=== PATIENT | male | born 1990 | race Caucasian/White ===

== ENCOUNTER 2019-02-28 11:37 | Emergency (ER) | payer OTHER, SELFPAY ==
[2019-02-28 11:38] VITALS: BP 98/62; PULSE 71; RESP 16; TEMP 36.9; O2SAT 99; BMI 18.0
[2019-02-28 12:45] LABS: Absolute Neutrophil Count 4.3 X10^3/uL (2.0-7.7); Basophil# 0.04 X10^3/uL; Basophil% 0.6 % (0-1); Eosinophil# 0.15 X10^3/uL; Eosinophils% 2.1 % (0-5); Hematocrit 46.8 % (40-54); Hemoglobin 15.7 g/dL (13.0-16.5); Lymphocyte % 22.5 % (19-41); Mean Corp Hgb Conc 33.5 g/dL (32-36); Mean Corpuscular Hgb 29.4 pg (27.0-32.0); Mean Corpuscular Volume 87.6 fL (80-94); Mean Platelet Vol. 9.2 fl (6.2-12.0); Monocyte# 0.95 X10^3/uL; Monocyte% 13.4 % (0-10); NRBC Flagged by Analyzer 0 % (0-5); Neutrophil # 4.34 X10^3/uL (2.7-7.7); Neutrophil % 61.1 % (47-70); Platelet Count 194 K/mm3 (150-450); RBC Distribution Width CV 11.6 % (11.6-14.6); RBC Distribution Width SD 37.4 fl (35.1-43.9); Red Blood Count 5.34 M/mm3 (4.6-6.2); White Blood Count 7.1 K/mm3 (4.4-11.0)
[2019-02-28 12:59] LABS: Anion Gap 2 (5-15); BUN 15 mg/dL (7-18); Calcium,Total 8.4 mg/dL (8.5-10.1); Chloride 105 mmol/L (98-107); EST Glomerular Filtration Rate 96 mL/min (>60); Est Glom Filt Rate - Afr Amer 116 mL/min (>60); Estimated Creatinine Clearance 85.18 ml/min; Glucose 93 mg/dL (74-106); Potassium 4.3 mmol/L (3.5-5.1); Sodium Level 138 mmol/L (136-145)
[2019-02-28 13:39] LABS: Internal QC Validated? YES +Cl - CLEAR BKGD; Monotest Negative (Negative)
--- NOTE | 2019-02-28 14:29 | ED.DCSUM_ITS ---
- ER Visit Summary Date of Service: 02/28/19 Chief Complaint: Sore throat History of Present Illness: The patient is a 28 M who presents with a sore throat and fevers over the past 4 days. Patient also admits to increasing fatigue. Patient describes the pain is dull. Patient states he also has canker sores and swelling of his gums there is worse on the left side. Patient admits to a headache. Patient admits to a mild cough. Patient states his fever was up to 102.3 at home. Patient admits to mild headache. Patient denies any nausea or vomiting. Patient states he has had mono in the past and states this feels similar to prior episode. Physical Examination: Vital signs are stable. Patient is afebrile. Patient is in no acute distress. Oral mucosa is pink and moist. Oropharynx is mildly erythematous. There are few aphthous ulcers noted on the left buccal mucosa. T here is no evidence of any abscess. Neck is supple. Trachea is midline. There is no JVD noted. There is mild anterior cervical lymphadenopathy. Heart was regular rate and rhythm. Lungs are clear and equal bilateral. Abdomen is soft. Bowel sounds are normal. There is no tenderness. There is no guarding noted. Skin is warm dry. Cranial nerves II through XII are intact. There are no focal motor or sensory deficits noted. Test Results: Rapid strep was obtained and was negative. Pender test was obtained and was negative. CBC and basic metabolic profile were within normal limits. Emergency Department Course and Treatment: Patient was advised of his test results. Patient was instructed to drink plenty of fluids. Patient was instructed to take Tylenol or ibuprofen as needed for any pain or fevers. Patient was advised that this is a viral infection and there is no antibiotic for this. Patient was instructed to follow-up with his primary care physician in 5 to 7 days. Patient understood and was agreeable with the plan. All questions were answered. Disposition: Discharge home Impression: Viral upper respiratory infection This note was generated with [employer] dictation software. It may contain incorrect words, spelling, and punctuation that were not noted in review of the chart prior to signing ED Disposition - Plan for ED Patient: Disposition: Home or Assisted Living Diagnosis: Viral upper respiratory infection Instructions: VIRAL SYNDROME (Adult) Referrals: Care Physician,No Primary [Primary Care Provider] - Jeffrey Dixon MD [NON-STAFF] - 5-7 Days
[2019-02-28 14:47] VITALS: BP 102/49; PULSE 68; RESP 18; O2SAT 100
== END 2019-02-28 14:48 | disposition home or self-care (01) ==
PROVIDERS: Emergency Provider Emergency Medicine
DX: J06.9 Acute upper respiratory infection, unspecified (principal); K12.1 Other forms of stomatitis
CPT/HCPCS: 80048; 85025; 86308; 87880; 99282